=== PATIENT | female | born 1990 | race Caucasian/White ===

== ENCOUNTER 2016-10-04 17:30 | Emergency (ER) | payer SELFPAY ==
[2016-10-04] MEDS ORDERED: NS 0.9% 1000 ML* 1,000 ML IV ONE (17:49)
[2016-10-04] MEDS ORDERED: Metoclopramide IV* 5 MG/ML 2 ML VIAL IV ONE (18:00)
--- NOTE | 2016-10-04 18:11 | ED ---
- HPI Summary HPI Summary: 26F lmp july 31 at 7 weeks presents with nausea and vomiting for two weeks. She also has been in [facility]. She had a fever two weeks ago and went to [facility] and was given fluids in the hospital and told she had gastroenteritis. She denies any diarrhea or constipation. She denies any dysuria. She denies any hematuria or flank pain. She denies anyone else being sick. She was taking zofran but stopped after learned that it causes defects. She denies any vaginal bleeding or discharge. She has never had this pain before. She states the pain is worst with food. She states the nausea and vomiting had resolved for 5 days until last night the nausea returned. She states the pain returned last night and then the vomiting. She had a normal u/s in [facility]. - History of Current Complaint Chief Complaint: EDNauseaVomitDiarrh Stated Complaint: 8 WKS PREG/ABD PAIN Time Seen by Provider: 10/04/16 17:47 Pain Intensity: 7 - Assessment Hx Now: No - Allergies/Home Medications Allergies/Adverse Reactions: Allergies Allergy/AdvReac Type Severity Reaction Status Date / Time Cefaclor [From Ceclor] Allergy VOMITING, Verified 03/04/14 16:43 HIVES PMH/Surg Hx/FS Hx/Imm Hx Endocrine/Hematology History: Denies: Hx Diabetes, Hx Thyroid Disease Cardiovascular History: Denies: Hx Hypertension Respiratory History: Denies: Hx Asthma, Hx Chronic Obstructive Pulmonary Disease (COPD) GI History: Denies: Hx Ulcer Infectious Disease History: No Infectious Disease History: Reports: Traveled Outside the [place] in Last 30 Days - [facility] Denies: Hx Clostridium Difficile, Hx Hepatitis, Hx Human Immunodeficiency Virus (HIV), Hx of Known/Suspected MRSA, Hx Shingles, Hx Tuberculosis, Hx Known/ Suspected VRE, Hx Known/Suspected VRSA, History Other Infectious Disease - Family History Known Family History: Positive: Hypertension - Social History Alcohol Use: Occasionally Alcohol Amount: has not drunk since Substance Use Type: Reports: None Smoking Status (MU): Never Smoked Tobacco Review of Systems Positive: Fever - resolved a week ago Negative: Chest Pain Negative: Shortness Of Breath, Cough Positive: Abdominal Pain - LUQ, Vomiting, Nausea. Negative: Diarrhea All Other Systems Reviewed And Are Negative: Yes Physical Exam - Physical Exam Triage Information Reviewed: Yes Vital Signs Reviewed: Yes Appearance: Positive: Well-Appearing Skin: Positive: Warm, Dry Head/Face: Positive: Normal Head/Face Inspection Eyes: Positive: Normal, Conjunctiva Clear ENT: Positive: Normal ENT inspection, Pharynx normal, TMs normal Respiratory/Lung Sounds: Positive: Clear to Auscultation, Breath Sounds Present Cardiovascular: Positive: Normal, RRR Abdomen Description: Positive: Soft, Other: - tenderness greatest in LUQ with mild tenderness in RUQ, neg reyes Bowel Sounds: Positive: Present Diagnostics - Vital Signs Vital Signs Temp Pulse Resp BP Pulse Ox 10/04/16 18:00 88 13 119/80 99 10/04/16 17:49 98.7 F 83 14 115/77 98 10/04/16 17:47 115/77 10/04/16 17:34 98.7 F 89 17 121/73 100 - Laboratory Result Diagrams: 10/04/16 18:15 10/04/16 18:15 Lab Statement: Any lab studies that have been ordered have been reviewed, and results considered in the medical decision making process. - Ultrasound No standard instances Ultrasound Interpretation: No Acute Changes Ultrasound Interpretation Completed By: Radiologist Course/Dx - Course Course Of Treatment: 26F at 7 weeks presents with LUQ pain, vomiting, and nausea for 2 weeks. She states she was in [facility] and went to the ED there and was told she was dehydrated and had gastroenteritis. She was discharge and said that she felt better until last night when symptoms returned. She denies any diarrhea or vaginal bleeding. on exam tenderness greatest in LUQ but some tenderness in RUQ so got gallbladder u/s which was normal. labs from [facility] shows wbc 12.6 and now wbc 12.2. crp .41. discussed results with patient. will add on reglan for immediate relief of vomiting. told to try some tums as pain potentially GERD related? told to follow up with obgyn. patient understands and agrees with plan - Differential Diagnosis/HQI/PQRI: Intrauterine , HELLP Syndrome, Other: - GERD - Diagnoses Provider Diagnoses: Abdominal pain affecting , Vomiting Discharge - Discharge Plan Condition: Good Disposition: HOME Prescriptions: Metoclopramide TAB* [Reglan TAB*] 5 mg PO Q6H PRN #20 tab PRN Reason: Nausea Patient Education Materials: Abdominal Pain in (ED) Referrals: Chely Walters NP [Primary Care Provider] - Additional Instructions: Take reglan every 6 hours as needed for nausea and vomiting Follow up with obgyn for continued care Take tums when develop abdominal pain to see if pain is acid reflux related Elevate head of bed, avoid acidic food Return to ED if develop any new or worsening symptoms
[2016-10-04 18:23] LABS: Hematocrit 39 % (35-47); Hemoglobin 13.1 g/dl (12.0-16.0); Mean Corpuscular HGB Conc 34 g/dl (31-36); Mean Corpuscular Hemoglobin 31 pg (27-31); Mean Corpuscular Volume 91 fL (80-97); Mean Platelet Volume 10 um3 (7.4-10.4); Red Blood Count 4.23 10^6/ul (4.0-5.4); Red Cell Distribution Width 12 % (10.5-15); White Blood Count 12.2 10^3/ul (3.5-10.8)
[2016-10-04 18:29] LABS: Urine Bilirubin Negative (Negative); Urine Glucose Negative (Negative); Urine Nitrite Negative (Negative)
--- NOTE | 2016-10-04 18:45 | RAD ---
HISTORY: Epigastric pain COMPARISONS: None TECHNIQUE: Multiple transverse and longitudinal ultrasound images were obtained of the right upper quadrant of the abdomen using grayscale and color Doppler imaging. FINDINGS: LIVER: The liver is normal in shape, size, contour, and echogenicity. There are no focal parenchymal masses. There is normal hepatopedal flow of the portal vein on Doppler imaging. BILIARY TREE: There is no intrahepatic or extrahepatic biliary dilatation. The common duct measures 0.1 cm. GALLBLADDER: The gallbladder is well-visualized. There is no cholelithiasis, gallbladder wall thickening, pericholecystic fluid, or sonographic Kee sign. PANCREAS: The head of the pancreas is unremarkable. The tail of the pancreas is not well visualized secondary to overlying bowel gas. RIGHT KIDNEY: The right kidney is normal in shape, size, contour, and echogenicity. There is no hydronephrosis or nephrolithiasis. The right kidney measures 12.3 x 3.8 x 5.3 cm. AORTA AND IVC: The aorta and IVC are unremarkable. FLUID: There are no pleural effusions. There is no free fluid within the hepatorenal recess. OTHER FINDINGS: None. IMPRESSION: NO ACUTE SONOGRAPHIC PATHOLOGY OF THE VISUALIZED PORTION OF THE ABDOMEN
[2016-10-04 18:58] LABS: Albumin 4.2 g/dL (3.2-5.2); Calcium 9.1 mg/dL (8.6-10.3); EGFR African American 193.3 (>60); EGFR Non-African American 150.3 (>60); Globulin 2.9 g/dL (2-4); Potassium 3.8 mmol/L (3.5-5.0); Total Bilirubin 0.2 mg/dL (0.2-1.0); Total Protein 7.1 g/dL (6.4-8.9)
[2016-10-04 19:54] VITALS: BP 117/76
== END 2016-10-04 19:57 | disposition home or self-care (01) ==
LOC: ED 17:30
DX: O26.891 Other specified pregnancy related conditions, first trimester (principal); Z3A.01 Less than 8 weeks gestation of pregnancy; R50.9 Fever, unspecified; R10.12 Left upper quadrant pain; R11.2 Nausea with vomiting, unspecified
CPT/HCPCS: 36415; 76705; 80053; 81003; 83605; 83690; 84702; 85025; 86141; 86900; 86901; 96374; 99283